=== PATIENT | female | born 1935 | race Two or more races ===

== ENCOUNTER 2018-07-23 02:44 | Inpatient (IN) | payer MEDICARE, OTHER ==
[~2018-07-23] VITALS: Ht 162.6 cm; Wt 181.4 kg
[~2018-07-23 02:44] MED LIST: ACTOS45 MG ORAL; CIPROFLOXACIN500 M2 ORAL; DIABETA5 MG ORAL; HYDROCHLOROTHIA25 MG ORAL; LEVOTHYROXINE50 MCG ORAL; LORAZEPAM2 MG ORAL; LOSARTAN POTASS50 MG ORAL; METFORMIN HCL850 M1 ORAL; NEXIUM40 MG ORAL; TAZTIA XT360 MG ORAL; TRAMADOL HCL50 MG ORAL; UNOBMED
[2018-07-23] MEDS ORDERED: COZAAR25 MG ORAL (02:46)
[2018-07-23 02:50] VITALS: BP 115/58
--- NOTE | 2018-07-23 02:50 | NUR ---
ED Nurse Note: Pt was BIBA from home, c/o lower back pain 8/10 for 3 days. Pt is A/O X4. O2 sat 88% on room air. Both legs were edema 2+. Bed rest, incontinent. Skin intact, waitng for orders.
[2018-07-23] MEDS ORDERED: HYDROmorphone 1mg/ml Carpuject IVP ONE (03:00)
[2018-07-23] MEDS ORDERED: DiphenhydrAMINE 50mg/ml Inj IVP ONE (03:00)
--- NOTE | 2018-07-23 03:15 | Emergency Room Report ---
History of Present Illness General Chief Complaint: Lower Back Pain or Injury Source: Patient Present Illness HPI Patient present with complaints of pain to the tailbone area reports that 2 days ago she has slid down on her recliner chair Paramedics were summoned and she reports that they were very rough and when they picked her up she had increased pain in the tailbone region And since then has been unable to ambulate or get relief of the pain Denies any chest pain or short of breath denies any vomiting or diarrhea denies any focal weakness however patient not able to bear weight Allergies: Coded Allergies: CEPHALEXIN (Unverified Allergy, Unknown, 02/26/14) MORPHINE (Unverified Allergy, Unknown, Altered Mental Status, 01/21/14) Patient History Past Medical History: see triage record Pertinent Family History: none Last Menstrual Period: n/a Reviewed Nursing Documentation: PMH: Agreed; PSxH: Agreed Nursing Documentation-PMH Past Medical History: No History, Except For Hx Cardiac Problems: Yes Hx Hypertension: Yes Hx Diabetes: Yes Hx Gastrointestinal Problems: Yes - hx gallstones, diverticulitis, GERD Hx Neurological Problems: Yes Hx Weakness: Yes Review of Systems All Other Systems: negative except mentioned in HPI Physical Exam Vital Signs Date Time Temp Pulse Resp B/P (MAP) Pulse Ox O2 Delivery O2 Flow Rate FiO2 07/23/18 02:41 97.5 76 18 136/75 98 Room Air Sp02 EP Interpretation: reviewed, normal General Appearance: mild distress - Appears uncomfortable Head: normocephalic, atraumatic Eyes: bilateral eye PERRL, bilateral eye EOMI ENT: hearing grossly normal, normal pharynx Neck: supple Respiratory: lungs clear, no respiratory distress, no retraction, no accessory muscle use Cardiovascular #1: regular rate, rhythm Gastrointestinal: other - Several hernias palpable mid abdominal region however soft and reducible Genitourinary: no CVA tenderness Musculoskeletal: other - Patient is morbidly obese, edema on both lower extremities sensory is intact Neurologic: alert, oriented x3, responsive Skin: normal color, no rash Lymphatic: no adenopathy Medical Decision Making Diagnostic Impression: Primary Impression: Low back pain Additional Impressions: Morbid obesity UTI (urinary tract infection) ER Course Given the patient's history and presentation multiple differentials and consideration Patient required aggressive blood work urine sample There is evidence of significant UTI Patient initiated on IV antibiotics given her level of discomfort and presentation required inpatient care and potential further imaging is needed Labs Test 07/23/18 03:23 07/23/18 04:00 White Blood Count 10.3 K/UL (4.8-10.8) Red Blood Count 3.68 M/UL (4.20-5.40) Hemoglobin 8.7 G/DL (12.0-16.0) Hematocrit 28.3 % (37.0-47.0) Mean Corpuscular Volume 77 FL (80-99) Mean Corpuscular Hemoglobin 23.7 PG (27.0-31.0) Mean Corpuscular Hemoglobin Concent 30.9 G/DL (32.0-36.0) Red Cell Distribution Width 16.8 % (11.6-14.8) Platelet Count 506 K/UL (150-450) Mean Platelet Volume 5.5 FL (6.5-10.1) Neutrophils (%) (Auto) 70.9 % (45.0-75.0) Lymphocytes (%) (Auto) 18.4 % (20.0-45.0) Monocytes (%) (Auto) 8.7 % (1.0-10.0) Eosinophils (%) (Auto) 1.4 % (0.0-3.0) Basophils (%) (Auto) 0.6 % (0.0-2.0) Sodium Level 136 MMOL/L (136-145) Potassium Level 4.4 MMOL/L (3.5-5.1) Chloride Level 100 MMOL/L (98-107) Carbon Dioxide Level 29 MMOL/L (21-32) Anion Gap 7 mmol/L (5-15) Blood Urea Nitrogen 43 mg/dL (7-18) Creatinine 1.9 MG/DL (0.55-1.30) Estimat Glomerular Filtration Rate mL/min (>60) Glucose Level 96 MG/DL (74-106) Calcium Level 8.4 MG/DL (8.5-10.1) Total Bilirubin 0.3 MG/DL (0.2-1.0) Aspartate Amino Transf (AST/SGOT) 13 U/L (15-37) Alanine Aminotransferase (ALT/SGPT) 15 U/L (12-78) Alkaline Phosphatase 145 U/L (46-116) Total Creatine Kinase 52 U/L (26-308) Creatine Kinase MB < 0.5 NG/ML (0.0-3.6) Creatine Kinase MB Relative Index 0.9 Total Protein 7.1 G/DL (6.4-8.2) Albumin 2.6 G/DL (3.4-5.0) Globulin 4.5 g/dL Albumin/Globulin Ratio 0.6 (1.0-2.7) Lipase 69 U/L (73-393) Urine Color Pale yellow Urine Appearance Cloudy Urine pH 6 (4.5-8.0) Urine Specific [place] 1.010 (1.005-1.035) Urine Protein Negative (NEGATIVE) Urine Glucose (UA) Negative (NEGATIVE) Urine Ketones Negative (NEGATIVE) Urine Blood Negative (NEGATIVE) Urine Nitrite Positive (NEGATIVE) Urine Bilirubin Negative (NEGATIVE) Urine Urobilinogen Normal MG/DL (0.0-1.0) Urine Leukocyte Esterase 3+ (NEGATIVE) Urine RBC 5-10 /HPF (0 - 2) Urine WBC Tntc /HPF (0 - 2) Urine Squamous Epithelial Cells Moderate /LPF (NONE/OCC) Urine Bacteria Many /HPF (NONE) Rhythm Strip Diag. Results EP Interpretation: yes Rate: 77 Rhythm: NSR, no PVC's, no ectopy Last Vital Signs Date Time Temp Pulse Resp B/P (MAP) Pulse Ox O2 Delivery O2 Flow Rate FiO2 07/23/18 02:41 97.5 76 18 136/75 98 Room Air Status: improved Disposition: ADMITTED INPATIENT Condition: Serious EstherjeanineCricket DO Jul 23, 2018 03:15
--- NOTE | 2018-07-23 03:25 | NUR ---
ED Nurse Note: Blood sample collected and sent to Lab.
[2018-07-23 03:29] LABS: BASOPHILS % (AUTO) 0.6 % (0.0-2.0); EOSINOPHILS % (AUTO) 1.4 % (0.0-3.0); HEMATOCRIT 28.3 % (37.0-47.0); HEMOGLOBIN 8.7 G/DL (12.0-16.0); LYMPHOCYTES % (AUTO) 18.4 % (20.0-45.0); MEAN CORPUSCULAR VOLUME 77 FL (80-99); MONOCYTES % (AUTO) 8.7 % (1.0-10.0); NEUTROPHILS % (AUTO) 70.9 % (45.0-75.0); PLATELET COUNT 506 K/UL (150-450); RED BLOOD COUNT 3.68 M/UL (4.20-5.40); RED CELL DISTRIBUTION WIDTH 16.8 % (11.6-14.8); WHITE BLOOD COUNT 10.3 K/UL (4.8-10.8)
[2018-07-23 03:40] LABS: ANION GAP 7 mmol/L (5-15); BLOOD UREA NITROGEN 43 mg/dL (7-18); CALCIUM 8.4 MG/DL (8.5-10.1); CARBON DIOXIDE 29 MMOL/L (21-32); CHLORIDE 100 MMOL/L (98-107); CREATININE 1.9 MG/DL (0.55-1.30); POTASSIUM 4.4 MMOL/L (3.5-5.1); SODIUM 136 MMOL/L (136-145)
--- NOTE | 2018-07-23 03:50 | NUR ---
ED Nurse Note: Urine sample collected and sent to Lab.
[2018-07-23 03:53] LABS: ALANINE AMINOTRANSFERASE 15 U/L (12-78); ALBUMIN 2.6 G/DL (3.4-5.0); ALBUMIN/GLOBULIN RATIO 0.6 (1.0-2.7); ALKALINE PHOSPHATASE 145 U/L (46-116); ASPARTATE AMINO TRANSFERASE 13 U/L (15-37); BILIRUBIN,TOTAL 0.3 MG/DL (0.2-1.0); CKMB < 0.5 NG/ML (0.0-3.6); CREATINE KINASE 52 U/L (26-308)
[2018-07-23 04:10] LABS: BILIRUBIN, URINE NEGATIVE (NEGATIVE); COLOR,URINE PALE YELLOW; GLUCOSE, URINE (UA) NEGATIVE (NEGATIVE); KETONES,URINE NEGATIVE (NEGATIVE); LEUKOCYTE ESTERASE ,URINE 3+ (NEGATIVE); NITRITE,URINE POSITIVE (NEGATIVE); PH,URINE 6 (4.5-8.0); PROTEIN,URINE NEGATIVE (NEGATIVE); UROBILINOGEN,URINE NORMAL MG/DL (0.0-1.0)
[2018-07-23 04:17] LABS: APPEARANCE,URINE CLOUDY
--- NOTE | 2018-07-23 04:23 | NUR ---
ED Nurse Note: Antibiotics gived as ordered.
--- NOTE | 2018-07-23 04:25 | NUR ---
TRANSFER TO FLOOR: Patient transferred to /S 401as ordered . Report given to Greta/JOSLYN. Belongings sent with Pt and rechecked with RN.
[2018-07-23] MEDS ORDERED: Clindamycin 600mg 50 ML IVPB ONE (04:30)
--- NOTE | 2018-07-23 04:30 | NUR ---
NURSE NOTES: Received patient from ER, patient arrived from home, awake, alert, oriented, RN called MD and left a message for admitting orders, patient is oriented to the room, call light is within reach, bed is in low position, locked and alarm is on. Belongings list been verified with ER nurse, items been accounted for. Will continue to monitor for safety and comfort.
--- NOTE | 2018-07-23 05:01 | NUR ---
Pebbles martinez in EDM - 07/24/18 at 2047 by SHORTY ED Nurse Note: Pain meds given as ordered.
[2018-07-23 05:11] VITALS: BP 154/89
[2018-07-23] MEDS ORDERED: HYDROmorphone 1mg/ml Carpuject IVP PRN ×3 (06:30→18:00)
--- NOTE | 2018-07-23 07:16 | NUR ---
HAND-OFF: Report given to Holland JORGENSEN.
[2018-07-23 08:00] VITALS: BP 127/59
--- NOTE | 2018-07-23 10:24 | NUR ---
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
--- NOTE | 2018-07-23 10:27 | NUR ---
NURSE NOTES: pt in bed with no sob nor in any form of distress noted. ivf running with no adverse reaction noted. Adequately hydrated. will continue to monitor
--- NOTE | 2018-07-23 11:59 | Diagnostic Imaging Report ---
Indication: Abnormal renal function tests Technique: Grayscale and duplex images of the kidneys, retroperitoneum, and bladder were obtained. Comparison: No comparison sonograms. Reference made to abdomen pelvis CT dated 01/21/2014 Findings: Right kidney measures 7.3 cm in length. Left kidney measures 8 point cm in length. Both kidneys demonstrate normal echogenicity. No hydronephrosis. The right kidney demonstrates small cysts. Normal inferior vena cava. Bladder is unremarkable, calculated volume 80 mL. Patient's nurse reports patient is incontinent. Incidentally noted is a small amount of free intraperitoneal fluid. Impression: Negative for hydronephrosis Bilateral small kidneys Right renal cysts Free intraperitoneal fluid.
[2018-07-23 12:00] VITALS: BP 127/64
[2018-07-23] MEDS: NovoLOG Insulin Flexpen SUBQ SCH ×2 (12:49→16:30)
--- NOTE | 2018-07-23 13:56 | Consultation ---
History of Present Illness General Date patient seen: Jul 23, 2018 Chief Complaint: Lower Back Pain or Injury Present Illness HPI 83 year old female with hx of DM, HTN, cirrhosis, GERD presented to ER from home with complaints of pain to the tailbone area reports that 2 days ago ramesh she has slid down on her recliner chair And since then has been unable to ambulate or get relief of the pain. she is morbidly obese with multiple medical problems. Allergies: Coded Allergies: CEPHALEXIN (Unverified Allergy, Unknown, 02/26/14) MORPHINE (Unverified Allergy, Unknown, Altered Mental Status, 01/21/14) Medication History Scheduled Ciprofloxacin Hcl* (Ciprofloxacin Hcl*), 500 MG ORAL Q12H Diltiazem Hcl (Taztia Xt), 360 MG ORAL DAILY, (Reported) Esomeprazole Magnesium (Nexium), 40 MG ORAL DAILY, (Reported) Hydrochlorothiazide* (Hydrochlorothiazide*), 25 MG ORAL DAILY, (Reported) Levothyroxine Sodium* (Levothyroxine Sodium*), 50 MCG ORAL DAILY, (Reported) Losartan Potassium* (Losartan Potassium*), 100 MG ORAL DAILY, (Reported) Losartan Potassium* (Cozaar*), 25 MG ORAL DAILY, (Reported) Metformin Hcl* (Metformin Hcl*), 850 MG ORAL TWICE A DAY, (Reported) Scheduled PRN Glyburide* (Diabeta*), 5 MG ORAL TWICE A DAY PRN for high blood glucose, ( Reported) Lorazepam* (Lorazepam*), 2 MG ORAL BID PRN for For Anxiety, (Reported) Tramadol Hcl* (Ultram*), 50 MG ORAL Q6H PRN for For Pain, (Reported) Patient History Healthcare decision maker Resuscitation status Full Code Advanced Directive on File Past Medical/Surgical History Past Medical/Surgical History: (1) Diabetes mellitus (2) History of hypertension Review of Systems Constitutional: Reports: no symptoms Eye: Reports: no symptoms ENT: Reports: no symptoms Physical Exam General Appearance: WD/WN Lines, tubes and drains: peripheral HEENT: normocephalic, atraumatic Neck: non-tender, normal alignment Respiratory/Chest: chest wall non-tender, lungs clear, decreased breath sounds Breasts: no masses Cardiovascular/Chest: normal peripheral pulses Abdomen: normal bowel sounds, non tender Genitourinary/Rectal: normal genital exam Extremities: normal range of motion Last 24 Hour Vital Signs Date Time Temp Pulse Resp B/P (MAP) Pulse Ox O2 Delivery O2 Flow Rate FiO2 07/23/18 08:55 Room Air 07/23/18 08:00 98.4 77 20 127/59 (81) 92 07/23/18 05:11 97.6 88 20 154/89 (110) 07/23/18 05:09 Nasal Cannula 2.0 07/23/18 04:25 97.8 74 26 113/53 96 Nasal Cannula 2.0 07/23/18 03:43 97.6 07/23/18 02:50 97.6 77 26 115/58 88 Room Air 07/23/18 02:41 97.5 76 18 136/75 98 Room Air Intake and Output 07/22/18 07/23/18 19:00 07:00 Intake Total 100 ml Balance 100 ml Intake Oral 100 ml # Bowel Movements 1 Laboratory Tests Test 07/23/18 03:23 07/23/18 04:00 White Blood Count 10.3 K/UL (4.8-10.8) Red Blood Count 3.68 M/UL (4.20-5.40) L Hemoglobin 8.7 G/DL (12.0-16.0) L Hematocrit 28.3 % (37.0-47.0) L Mean Corpuscular Volume 77 FL (80-99) L Mean Corpuscular Hemoglobin 23.7 PG (27.0-31.0) L Mean Corpuscular Hemoglobin Concent 30.9 G/DL (32.0-36.0) L Red Cell Distribution Width 16.8 % (11.6-14.8) H Platelet Count 506 K/UL (150-450) H Mean Platelet Volume 5.5 FL (6.5-10.1) L Neutrophils (%) (Auto) 70.9 % (45.0-75.0) Lymphocytes (%) (Auto) 18.4 % (20.0-45.0) L Monocytes (%) (Auto) 8.7 % (1.0-10.0) Eosinophils (%) (Auto) 1.4 % (0.0-3.0) Basophils (%) (Auto) 0.6 % (0.0-2.0) Sodium Level 136 MMOL/L (136-145) Potassium Level 4.4 MMOL/L (3.5-5.1) Chloride Level 100 MMOL/L (98-107) Carbon Dioxide Level 29 MMOL/L (21-32) Anion Gap 7 mmol/L (5-15) Blood Urea Nitrogen 43 mg/dL (7-18) H Creatinine 1.9 MG/DL (0.55-1.30) H Estimat Glomerular Filtration Rate mL/min (>60) Glucose Level 96 MG/DL (74-106) Calcium Level 8.4 MG/DL (8.5-10.1) L Total Bilirubin 0.3 MG/DL (0.2-1.0) Aspartate Amino Transf (AST/SGOT) 13 U/L (15-37) L Alanine Aminotransferase (ALT/SGPT) 15 U/L (12-78) Alkaline Phosphatase 145 U/L (46-116) H Total Creatine Kinase 52 U/L (26-308) Creatine Kinase MB < 0.5 NG/ML (0.0-3.6) Creatine Kinase MB Relative Index 0.9 Total Protein 7.1 G/DL (6.4-8.2) Albumin 2.6 G/DL (3.4-5.0) L Globulin 4.5 g/dL Albumin/Globulin Ratio 0.6 (1.0-2.7) L Lipase 69 U/L (73-393) L Urine Color Pale yellow Urine Appearance Cloudy Urine pH 6 (4.5-8.0) Urine Specific [place] 1.010 (1.005-1.035) Urine Protein Negative (NEGATIVE) Urine Glucose (UA) Negative (NEGATIVE) Urine Ketones Negative (NEGATIVE) Urine Blood Negative (NEGATIVE) Urine Nitrite Positive (NEGATIVE) H Urine Bilirubin Negative (NEGATIVE) Urine Urobilinogen Normal MG/DL (0.0-1.0) Urine Leukocyte Esterase 3+ (NEGATIVE) H Urine RBC 5-10 /HPF (0 - 2) H Urine WBC Tntc /HPF (0 - 2) H Urine Squamous Epithelial Cells Moderate /LPF (NONE/OCC) H Urine Bacteria Many /HPF (NONE) H Height (Feet): 5 Height (Inches): 4.00 Weight (Pounds): 400 Medications Current Medications Medications (Trade) Dose Ordered Sig/Js Route PRN Reason Start Time Stop Time Status Last Admin Dose Admin Acetaminophen (Tylenol) 650 mg Q6H PRN ORAL Mild Pain/Temp > 100.5 07/23/18 06:30 08/22/18 06:29 Dextrose (Dextrose 50%) 25 ml Q30M PRN IV Hypoglycemia 07/23/18 06:45 08/22/18 06:44 Dextrose (Dextrose 50%) 50 ml Q30M PRN IV Hypoglycemia 07/23/18 06:45 08/22/18 06:44 Heparin Sodium (Porcine) (Heparin 5000 units/ml) 5,000 units Q8HR SUBQ 07/23/18 14:00 08/22/18 13:59 07/23/18 13:13 Hydromorphone HCl (Dilaudid) 0.5 mg Q4H PRN IVP For Pain 07/23/18 06:30 07/30/18 06:29 Insulin Aspart (NovoLOG) BEFORE MEALS AND HS SUBQ 07/23/18 11:30 08/22/18 11:29 07/23/18 12:49 Levofloxacin 50 ml @ 50 mls/hr DAILY IVPB 07/24/18 09:00 07/31/18 08:59 Ondansetron HCl (Zofran) 4 mg Q4H PRN IVP Nausea & Vomiting 07/23/18 06:30 08/22/18 06:29 Sodium Chloride 1,000 ml @ 75 mls/hr [id number] IV 07/23/18 08:00 08/22/18 07:59 07/23/18 08:17 Assessment/Plan Problem List: (1) Intractable back pain ICD Codes: M54.9 - Dorsalgia, unspecified SNOMED: 259509940 (2) ATN (acute tubular necrosis) ICD Codes: N17.0 - Acute kidney failure with tubular necrosis SNOMED: 76097053 (3) Severe anemia ICD Codes: D64.9 - Anemia, unspecified SNOMED: 109235239 (4) History of hypertension ICD Codes: Z86.79 - Personal history of other diseases of the circulatory system SNOMED: 653774386 (5) Morbid obesity ICD Codes: E66.01 - Morbid (severe) obesity due to excess calories SNOMED: 568880126 (6) Diabetes mellitus ICD Codes: E11.9 - Type 2 diabetes mellitus without complications SNOMED: 80830601 Assessment/Plan pain control symptomatic treatment check echo sliding scale renal study Anemia w/u Linnea Sierra MD Jul 23, 2018 13:56
[2018-07-23] MEDS ORDERED: Heparin 5000 units/ml inj SUBQ SCH ×2 (14:00→22:00)
--- NOTE | 2018-07-23 15:08 | NUR ---
NURSE NOTES: Urine sample sent to the lab
[2018-07-23 15:21] LABS: APPEARANCE,URINE CLEAR; BILIRUBIN, URINE NEGATIVE (NEGATIVE); COLOR,URINE PALE YELLOW; GLUCOSE, URINE (UA) NEGATIVE (NEGATIVE); KETONES,URINE NEGATIVE (NEGATIVE); LEUKOCYTE ESTERASE ,URINE 2+ (NEGATIVE); NITRITE,URINE POSITIVE (NEGATIVE); PH,URINE 6 (4.5-8.0); PROTEIN,URINE NEGATIVE (NEGATIVE); UROBILINOGEN,URINE NORMAL MG/DL (0.0-1.0)
[2018-07-23] MEDS ORDERED: traMADol 50mg tab ORAL PRN ×2 (15:45→18:00)
[2018-07-23] MEDS ORDERED: LORazepam 1mg tab ORAL PRN ×2 (15:45→18:00)
--- NOTE | 2018-07-23 15:47 | History & Physical ---
History and Physical History & Physicial Peter Mcgovern MD Jul 23, 2018 15:47
[2018-07-23 16:00] VITALS: BP 129/64
--- NOTE | 2018-07-23 16:51 | Cardiology Report ---
APPROVED REPORT EXAM: Two-dimensional and M-mode echocardiogram with Doppler and color Doppler. INDICATION Left ventricular function M-Mode DIMENSIONS IVSd1.3 (0.7-1.1cm)Left Atrium (MM)4.0 (1.6-4.0cm) LVDd4.7 (3.5-5.6cm)Aortic Root3.2 (2.0-3.7cm) PWd1.3 (0.7-1.1cm)Aortic Cusp Exc.1.5 (1.5-2.0cm) LVDs3.3 (2.5-4.0cm) PWs1.3 cm Technically difficult study due to patient body habitus. Study quality precludes accurate assessment of regional wall motion. Normal left ventricular chamber size, systolic function and wall motion to extent visualized. Left ventricular ejection fraction estimated to be 55%. Mild left ventricular hypertrophy. No evidence of pericardial effusion. All other cardiac chamber sizes are within normal limits. Aortic valve calcification with decreased cusp excursion c/w aortic stenosis. Mildly thickened mitral valve leaflets with normal excursion. Mild mitral annulus and aortic root calcification. Pulmonic valve not well visualized. Normal tricuspid valve structure. IVC is normal in size without physiological collapse, suggestive of increased RA pressure. A color flow and spectral Doppler study was performed and revealed: No aortic insufficiency. Peak aortic valve gradient of 33 mmHg and a mean of 16 mmHg. Aortic valve area 1.2 cm2 calculated by continuity equation. Mild mitral regurgitation. Mitral diastolic velocities suggest mild left ventricular diastolic dysfunction (Grade I). Mild tricuspid regurgitation. Tricuspid systolic velocities suggests peak right ventricular systolic pressure of 36 mmHg, consistent with mild pulmonary hypertension. Mild pulmonic regurgitation present.
--- NOTE | 2018-07-23 17:38 | NUR ---
HAND-OFF: Report given to JOSLYN Baumann (Daughter made aware of pt's transfer. All belongings checked and kept at bedside.)
--- NOTE | 2018-07-23 17:40 | NUR ---
NURSE NOTES: Received report from JOSLYN Maya. Pt is very upset over transfer. She is refusing the heart monitor. Does not want anything. Pt is very agitated. Will continue to monitor.
--- NOTE | 2018-07-23 18:30 | NUR ---
NURSE NOTES: Received call from patients daughter, Priscilla. Pt will be signing out AMA. PT is very upset over transfer and came in because of back pain. 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 Pt is refusing to sign any paper work and to receive any medication.
--- NOTE | 2018-07-23 19:25 | NUR ---
NURSE NOTES: Received pt. and report from JOSLYN Baumann. Observe pt. resting in bed with both eyes open. Bed is in the lowest position and locked, call light within reach. No signs and symptoms of acute distress noted at this time. Pt. states, "I am unhappy" and wants to leave AMA. Awaiting for daughter to arrive.
--- NOTE | 2018-07-23 19:30 | NUR ---
HAND-OFF: Report given to JOSLYN Lam. Plan of care endorsed.
--- NOTE | 2018-07-23 19:53 | NUR ---
NURSE NOTES: O2 saturation is at 90%. Pt. refused oxygen.
--- NOTE | 2018-07-23 20:30 | NUR ---
AMA: SEE AMA FORM. Dr. Mcgovern notified of AMA. Pt's daughter, Priscilla signed AMA form. IV removed, no bleeding noted. Belongings list checked and signed by daughter. Belongings left with pt. and daughter. Vital signs stable. Pt. transferred by wheelchair. Pt. transferred to car without any incident.
[2018-07-23] MEDS ORDERED: NovoLOG Insulin Flexpen SUBQ SCH (21:00)
--- NOTE | 2018-07-23 23:45 | History and Physical Report ---
DATE OF ADMISSION: 07/23/2018 CHIEF COMPLAINT: Lower back pain. HISTORY OF PRESENT ILLNESS: This is an 83-year-old morbidly obese female with a past medical history significant for diabetes type 2, hypertension, liver cirrhosis, and gastroesophageal reflux disease, who has presented to the emergency room after complaining about lower back pain. The patient stated that the pain is mostly located in the tailbones. It has been going on for past two days. She slide down on her reclining chair. Since then, she has been having pain, progressive worsening. She lives at home with her daughter and for her, ambulation has become very difficult. Shortly after initial evaluation in the emergency room, the patient was noted to have urinary tract infection and dehydration. Subsequently, the patient was admitted to the hospital with lower back pain as well as acute urinary tract infection with acute kidney injury on chronic renal insufficiency. PAST MEDICAL HISTORY/PAST SURGICAL HISTORY: As above. History of diabetes type 2, hypertension, liver cirrhosis, gastroesophageal reflux disease, and hypothyroidism. MEDICATIONS: Medications at home significant for more ciprofloxacin, diltiazem, Nexium, hydrochlorothiazide, levothyroxine, losartan, and metformin. ALLERGIES: Cephalexin and morphine. SOCIAL HISTORY: No smoking, alcohol, or drugs. FAMILY HISTORY: Noncontributory. REVIEW OF SYSTEMS: Mostly as above. Denies any dysuria, frequency, or hematuria. Complained about the lower back pain. Denies any hemoptysis or hematochezia. Denies any fall or head trauma. PHYSICAL EXAMINATION: VITAL SIGNS: On admission, temperature 98.4, pulse of 77, respirations 20, and blood pressure 127/59. GENERAL: The patient is awake and responsive, no acute distress. HEAD AND NECK: Pupils are reactive to light. Extraocular movements intact. NECK: Supple. No JVD. LUNGS: Good air entry. No wheezing or rales. HEART: Reveals S1, S2. Distant heart sounds. No murmurs or gallops. ABDOMEN: Soft, nondistended, and nontender. Morbidly obese. EXTREMITIES: No cyanosis or clubbing. Trace edema. NEUROLOGIC: Cranial nerves II through XII grossly intact. Motor is 5/5 in all extremities. Gait was not assessed due to the patient's status. LABORATORY DATA: On admission, WBC of 10, hemoglobin 8.7, hematocrit 28, and platelets is 506,000. Sodium 136, potassium 4.4, chloride 100, bicarbonate 29, BUN 43, creatinine 1.9, and glucose is 96. Calcium is 8.4. AST of 13, ALT of 15, and alkaline phosphate is 145. Albumin is 2.6. Lipase is 96. Urine is positive nitrite, +3 leukocytes, wbc, and many bacteria. Renal ultrasound was done, negative for hydronephrosis. A small cyst was identified bilaterally. Right renal cyst and free intraperitoneal fluid was identified. ASSESSMENT: 1. Acute urinary tract infection. 2. Lower back pain most likely secondary to sacral decubitus injury or lumbar degenerative changes. 3. Hypochromic microcytic anemia. 4. Diabetes type 2. 5. Hypertension. 6. Liver cirrhosis. 7. Morbid obesity. 8. Gastroesophageal reflux disease. 9. Acute kidney injury on chronic renal insufficiency. PLAN: 1. Admit the patient to Med/Surg. 2. Resume home medication. 3. Broad-spectrum antibiotic with Levaquin due to the patient has a cephalexin allergy. 4. Code status is Full Code. 5. DVT prophylaxis with heparin subcutaneous. 6. Monitor blood glucose level closely. 7. Follow up with the cultures. 8. Consider to get a PT and OT evaluation once her pain become better controlled. Peter Mcgovern M.D. DR: CLARITA JOB#: [id number] CC:
[2018-07-24] MEDS ORDERED: Losartan 25mg tab ORAL SCH ×2 (09:00)
--- NOTE | 2018-07-26 14:24 | Discharge Summary ---
Discharge Summary Discharge Summary _ DATE OF ADMISSION: 07/23/2018 DATE OF DISCHARGE: 07/23/2018 Patient left AGAINST MEDICAL ADVICE REASON FOR ADMISSION: 83 years old female with past medical history of diabetes mellitus type 2, hypertension, liver cirrhosis, GERD, hypothyroidism, presented to emergency department with complaint of lower back pain. Painmainly located ion the tailbone. Pain was ongoing for the last 2-days. Patient reported sliding down on her reclining chair , and since that time she was having progressively worsening low back pain. Ambulation has become very difficult for her. CONSULTANTS: pulmonary/heel blacker Dr. Sierra [facility]: Patient admitted to medical surgical floor Home medication resumed. Patient started on broad-spectrum antibiotics with Levaquin , since patient had cephalexin allergy. Patient remained full code. DVT prophylaxis with subcutaneous heparin provided. Blood sugar was managed with glyburide and sliding scale of insulin as needed. Blood pressure was managed with angiotensin receptor jackson, remained stable. Echocardiogram revealed preserved ejection fraction 55% with mild left ventricular hypertrophy. No evidence of wall motion abnormality. No evidence of pericardial effusion. Right ventricular systolic pressure of 36 consistent with a mild pulmonary hypertension GI prophylaxis provided. Levothyroxine continued. Pain management was addressed. Patient started on the IV fluids with close monitoring of renal parameters and electrolytes. Anemia workup was ordered with close monitoring of hemoglobin and hematocrit to keep hemoglobin above 7. At the time of this dictation urine culture revealed E. coli. Patient decided to leave AGAINST MEDICAL ADVICE. Patient;s daughter signed AMA form. The risks and consequences of signing AGAINST MEDICAL ADVICE were discussed with patient and her daughter in detail. They verbalized understanding, nevertheless daughter signed AMA form and left. FINAL DIAGNOSES: Acute urinary tract infection with E. coli Lower back pain, most likely secondary to sacral decubitus injury or lumbar degenerative changes Hypochromic microcytic anemia Diabetes mellitus type 2 Hypertension Liver cirrhosis Morbid obesity GERD Acute kidney injury on chronic renal insufficiency Morbid obesity I have been assigned to dictate discharge summary for this account. I was not involved in the patient's management. Constanza Rosenbaum NP Jul 26, 2018 14:24
== END 2018-07-23 20:30 | disposition left against medical advice (07) | DRG 689 ==
LOC: EDBD 02:44 → EMR 02:56 → 4E 03:26 → EDBEDREQ 03:35 → 2E 17:55
DX: N39.0 Urinary tract infection, site not specified (principal); N17.0 Acute kidney failure with tubular necrosis; Z68.44 Body mass index [BMI] 60.0-69.9, adult; L89.150 Pressure ulcer of sacral region, unstageable; B96.20 Unspecified Escherichia coli [E. coli] as the cause of diseases classified elsewhere; M51.36 Other intervertebral disc degeneration, lumbar region; E66.01 Morbid (severe) obesity due to excess calories; K21.9 Gastro-esophageal reflux disease without esophagitis; Z88.6 Allergy status to analgesic agent; Z88.1 Allergy status to other antibiotic agents; E03.9 Hypothyroidism, unspecified; I12.9 Hypertensive chronic kidney disease with stage 1 through stage 4 chronic kidney disease, or unspecified chronic kidney disease; E11.22 Type 2 diabetes mellitus with diabetic chronic kidney disease; N18.9 Chronic kidney disease, unspecified; K74.60 Unspecified cirrhosis of liver; D50.9 Iron deficiency anemia, unspecified; Z79.84 Long term (current) use of oral hypoglycemic drugs; E86.0 Dehydration
CPT/HCPCS: 36415; 76770; 80053; 81001; 81003; 82550; 82553; 82962; 83690; 84133; 84300; 85025; 87086; 87181; 89050; 93306; 96374; 96375; 99285; J1815; J2405; S0077